=== PATIENT | female | born 1965 | race Hispanic/Latino ===

== ENCOUNTER 2023-06-17 11:01 | Emergency (ER) | payer BC, OTHER ==
--- OUTSIDE RECORDS SUMMARY | 2023-06-17 11:44 | XMS REPORT | Continuity of Care Document ---
:1965 Author Organization [facility] t Address [address] [place] [id number] Care Team Providers Name Role Phone Unavailable Unavailable Unavailable Problems This patient has no known problems. Allergies, Adverse Reactions, Alerts This patient has no known allergies or adverse reactions. Medications This patient has no known medications. Procedures This patient has no known procedures. Results This patient has no known results.
[2023-06-17 11:53] LABS: Absolute Lymphocytes (CBC) 1.6 K/uL (0.7-4.9); Hematocrit 38.9 % (36.0-45.0); Lymphocytes % 21.5 % (15.3-44.8); MCV 86.7 fL (80-100); MPV 8.7 fL (7.6-11.3); RBC Red Blood Cell Count 4.49 M/uL (3.86-4.86)
[2023-06-17] MEDS ORDERED: MAGNES/ALUMIN/SIMET 30ML UCUP ONE (11:53)
[2023-06-17] MEDS ORDERED: ASPIRIN 81 MG CHEWABLE TABLET ONE (11:53)
[2023-06-17] MEDS ORDERED: ONDANSETRON 4 MG/2 ML VIAL ONE (11:54)
[2023-06-17] MEDS ORDERED: FAMOTIDINE 20 MG/2 ML VIAL IV ONE (11:54)
[2023-06-17 12:12] LABS: ALT/SGPT 24 U/L (13-56); AST/SGOT 12 U/L (15-37); Albumin 3.8 g/dL (3.4-5.0); Alkaline Phosphatase 123 U/L (45-117); BUN Blood Urea Nitrogen 10 mg/dL (7-18); Bicarbonate 27 mEq/L (21-32); Bilirubin Total 0.3 mg/dL (0.2-1.0); Glomerular Filtration Rate 102 ml/min (=/>90); Glucose Level 99 mg/dL (74-106); NT PRO-BNP 81 pg/mL (<125); Potassium 3.6 mEq/L (3.5-5.1); Protein, Total 7.8 g/dL (6.4-8.2); Sodium Level 139 mEq/L (136-145); Troponin High Sensitivity 3.7 pg/mL (<58.9)
[2023-06-17 12:15] LABS: Bilirubin Direct < 0.1 mg/dL (0-0.2); Bilirubin Indirect, Calculated ND mg/dL (0.2-0.8)
--- NOTE | 2023-06-17 12:16 | RAD REPORT ---
EXAM DESCRIPTION: [place] Single View06/17/2023 11:54 am CLINICAL HISTORY: Chest pain COMPARISON: none FINDINGS: The lungs appear clear of acute infiltrate. The heart is normal size IMPRESSION: No acute abnormalities displayed
--- NOTE | 2023-06-17 12:36 | EDPHYS ---
Physician Documentation [facility] [place], [place] Name: Deborah Velasquez Age: 57 yrs Sex: Female : 1965 Arrival Date: 06/17/2023 Time: 11:01 Bed 18 Private MD: ED Physician Taz Razo HPI: 06/17 11:10 Patient is a 57-year-old obese female here with chest pain that started at 5 this jr11 morning. Patient states the pain is dull like goes into her back, associated with 1 episode of emesis. Denies any diaphoresis does not cross the diaphragm patient otherwise has had her gallbladder out. Denies shortness of breath. Denies exertional component to this chest pain. Not described as a tearing pain. No syncope.. Historical: - Allergies: : No Known Allergies; iw - Home Meds: :07 None [Active]; iw - PMHx: 11:07 None; iw - PSHx: 11:07 section; iw - Immunization history:: Adult Immunizations up to date. - Social history:: Smoking status: Patient denies any tobacco usage or history of. ROS: 11:10 All other systems are negative. jr11 Exam: 11:10 Constitutional: This is a well developed, well nourished patient who is awake, alert, jr11 and in no acute distress. Head/Face: Normocephalic, atraumatic. Eyes: Extra-ocular motions intact. Lids and lashes normal. Conjunctiva and sclera are non-icteric and not injected. Cornea within normal limits. Periorbital areas with no swelling, redness, or edema. ENT: Nares patent. No nasal discharge, no septal abnormalities noted. Oropharynx with no redness, swelling, or masses, exudates, or evidence of obstruction, uvula midline. Mucous membranes moist. Chest/axilla: Normal chest wall appearance and motion. Nontender with no deformity. No lesions are appreciated. Cardiovascular: Regular rate and rhythm with a normal S1 and S2. No gallops, murmurs, or rubs. Normal PMI, no JVD. No pulse deficits. Respiratory: Lungs have equal breath sounds bilaterally, clear to auscultation and percussion. No rales, rhonchi or wheezes noted. No increased work of breathing, no retractions or nasal flaring. Abdomen/GI: TTP KASH, no peritoneal signs Back: No spinal tenderness. No costovertebral tenderness. Full range of motion. MS/ Extremity: Pulses equal, no cyanosis. Neurovascular intact. Full, normal range of motion. Neuro: Awake and alert, GCS 15, oriented to person, place, time, and situation. No gross motor or sensory deficits. Vital Signs: 11:04 Pulse 91; Resp 16; Pulse Ox 99% ; Pain 5/10; iw 11:07 Weight 83.46 kg; Height 4 ft. 11 in. ; iw 11:15 BP 141 / 82; Pulse 76; Resp 18; Pulse Ox 98% on R/A; eh3 12:00 BP 116 / 86; Pulse 75; Resp 20; Pulse Ox 98% on R/A; eh3 11:07 Body Mass Index 37.16 (83.46 kg, 149.86 cm) iw 11:04 Pain Scale: Adult iw MDM: 11:09 Patient medically screened. jr11 11:10 Differential diagnosis: coronary artery disease congestive heart failure jr11 costochondritis, esophagitis, gastritis, gastroesophageal reflux disease (GERD), pneumonia, Patient is a 57-year-old obese female that is her only risk factor here with chest pain. Only atypical feature is she had a bout of emesis, other than that denies exertional component rest of the history negative to rule in for ACS. Patient with some mid epigastric discomfort, will give a GI cocktail. If troponins negative heart score will be less than 3. Patient without any shortness of breath no history of blood clots no leg swelling, doubt PE. Pain is not described as tearing, no concern for dissection or AAA. 11:21 ED course: EKG interpreted by me shows normal sinus rhythm, normal axis, normal jr11 intervals, no acute ST changes. youth nutritional monitor interpreted by me shows normal sinus rhythm rate of 75.. 12:34 ED course: X-ray image interpreted by me shows no pneumonia. Patient with heart score jr11 less than 3, got immediate relief with GI cocktail, chest pain likely noncardiac chest pain with a heart score less than 3 able to get outpatient follow-up. Patient comfortable with plan of care and understands it is her responsibility to schedule an outpatient stress test ideally within to 72 hours. ER warnings given all results explained.. 06/17 11:10 Order name: Basic Metabolic Panel; Complete Time: 12:29 06/17 11:10 Order name: CBC with Diff; Complete Time: 12:06/17 11:10 Order name: LFT's; Complete Time: 12:06/17 11:10 Order name: NT PRO-BNP; Complete Time: 12:06/17 11:10 Order name: Troponin HS; Complete Time: 12:06/17 11:10 Order name: XRAY Chest (1 view); Complete Time: 12:06/17 11:10 Order name: EKG; Complete Time: 11:06/17 11:10 Order name: Cardiac monitoring; Complete Time: :06/17 11:10 Order name: EKG - Nurse/Tech; Complete Time: :06/17 11:10 Order name: IV Saline Lock; Complete Time: 11:47 06/17 11:10 Order name: Labs collected and sent; Complete Time: 11:06/17 11:10 Order name: O2 Per Protocol; Complete Time: :06/17 11:10 Order name: O2 Sat Monitoring; Complete Time: 11: Administered Medications: 11:53 Drug: Aspirin PO Chewable Tablet 324 mg Route: PO; eh3 12:30 Follow up: Response: No adverse reaction eh3 11:53 Drug: Ondansetron IVP 4 mg Route: IVP; Site: left antecubital; eh3 12:30 Follow up: Response: No adverse reaction eh3 11:53 Drug: Famotidine IVP 20 mg Route: IVP; Site: left antecubital; eh3 12:30 Follow up: Response: No adverse reaction eh3 11:53 Drug: GI Cocktail without - (Maalox PO Suspension 30 ml, Lidocaine Mucous eh3 Membrane Liquid 2 % 15 ml) Route: PO; 12:30 Follow up: Response: No adverse reaction eh3 Disposition Summary: 06/17/23 12:35 Discharge Ordered Location: [facility] Condition: Stable [facility] Diagnosis - Chest pain, unspecified 11 Followup: [facility] - With: Tomer Salas MD - When: 1 - 2 days - Reason: Re-evaluation by your physician Discharge Instructions: - Discharge Summary Sheet jr11 - Nonspecific Chest Pain, Adult jr11 Forms: - Work release form iw - Medication Reconciliation Form jr11 - Thank You Letter jr11 - Antibiotic Education jr11 - Prescription Opioid Use jr11 - Patient Portal Instructions jr11 Prescriptions: - Pepcid 20 mg Oral Tablet - take 1 tablet by ORAL route every 12 hours for 10 days; 20 tablet; Refills: 0, jr11 Product Selection Permitted Signatures: Dispatcher [employer] Cheyanne Ghosh RN RN iw Taz Razo MD MD jr11 Cecille Kyle RN RN 3
--- NOTE | 2023-06-17 12:36 | ER ---
Nurse's Notes [facility] Name: Deborah Velasquez Age: 57 yrs Sex: Female : 1965 Arrival Date: 06/17/2023 Time: 11:01 Bed 18 Private MD: Diagnosis: Chest pain, unspecified Presentation: 06/17 11:04 Chief complaint: Patient states: midsternal chest pain since 5 am, intermittent, took iw some Tums , vomited once. Coronavirus screen: At this time, the client does not indicate any symptoms associated with coronavirus-19. Ebola Screen: Patient negative for fever greater than or equal to 101.5 degrees Fahrenheit, and additional compatible Ebola Virus Disease symptoms Patient denies exposure to infectious person. Patient denies travel to an Ebola-affected area in the 21 days before illness onset. No symptoms or risks identified at this time. Initial Sepsis Screen: Does the patient meet any 2 criteria? Yes No. Patient's initial sepsis screen is negative. Does the patient have a suspected source of infection? No. Patient's initial sepsis screen is negative. Risk Assessment: Do you want to hurt yourself or someone else? Patient reports no desire to harm self or others. Onset of symptoms was June 17, 2023. 11:04 Method Of Arrival: Ambulatory iw 11:04 Acuity: NIECY 3 iw Historical: - Allergies: 11:07 No Known Allergies; iw - Home Meds: 11:07 None [Active]; iw - PMHx: 11:07 None; iw - PSHx: 11:07 section; iw - Immunization history:: Adult Immunizations up to date. - Social history:: Smoking status: Patient denies any tobacco usage or history of. Screenin:15 [facility] ED Fall Risk Assessment (Adult) Score/Fall Risk Level 0 - 2 = Low Risk. Abuse eh3 screen: Denies threats or abuse. Denies injuries from another. Nutritional screening: No deficits noted. Tuberculosis screening: No symptoms or risk factors identified. Assessment: 11:15 General: Appears in no apparent distress. uncomfortable, Behavior is calm, cooperative, eh3 appropriate for age. Pain: Complains of pain in chest and abdomen Pain does not radiate. Pain began suddenly, 2 hours ago. Neuro: Level of Consciousness is awake, alert, obeys commands, Oriented to person, place, time, situation. Cardiovascular: Capillary refill < 3 seconds Patient's skin is warm and dry. Respiratory: Airway is patent Respiratory effort is even, unlabored, Respiratory pattern is regular, symmetrical. GI: Abdomen is round non-distended, Reports vomiting. Derm: Skin is healthy with good turgor. Musculoskeletal: Circulation, motion, and sensation intact. 12:00 Reassessment: Patient appears in no apparent distress at this time. Patient and/or eh3 family updated on plan of care and expected duration. Pain level reassessed. Patient is alert, oriented x 3, equal unlabored respirations, skin warm/dry/pink. Vital Signs: 11:04 Pulse 91; Resp 16; Pulse Ox 99% ; Pain 5/10; iw 11:07 Weight 83.46 kg; Height 4 ft. 11 in. ; iw 11:15 BP 141 / 82; Pulse 76; Resp 18; Pulse Ox 98% on R/A; eh3 12:00 BP 116 / 86; Pulse 75; Resp 20; Pulse Ox 98% on R/A; eh3 11:07 Body Mass Index 37.16 (83.46 kg, 149.86 cm) iw 11:04 Pain Scale: Adult iw ED Course: 11:02 Patient arrived in ED. am2 11:04 Taz Razo MD is Attending Physician. jr11 11:06 Triage completed. iw 11:07 Arm band placed on. iw 11:15 Patient has correct armband on for positive identification. Bed in low position. Call eh3 light in reach. Side rails up X2. Client placed on continuous cardiac and pulse oximetry monitoring. NIBP monitoring applied. Door closed. Noise minimized. 11:15 Provided Education on: Use of call choi. eh3 11:15 Inserted saline lock: 20 gauge in left antecubital area, using aseptic technique. Blood eh3 collected. Patient maintains SpO2 saturation greater than 95% on room air. 11:29 EKG done, by ED staff, reviewed by Taz Razo MD. em1 11:31 Cecille Kyle, RN is Primary Nurse. eh3 11:56 XRAY Chest (1 view) In Process Unspecified. EDMS 12:34 Tomer Salas MD is Referral Physician. jr11 13:00 No provider procedures requiring assistance completed. IV discontinued, intact, eh3 bleeding controlled, No redness/swelling at site. Pressure dressing applied. Administered Medications: 11:53 Drug: Aspirin PO Chewable Tablet 324 mg Route: PO; eh3 12:30 Follow up: Response: No adverse reaction eh3 11:53 Drug: Ondansetron IVP 4 mg Route: IVP; Site: left antecubital; eh3 12:30 Follow up: Response: No adverse reaction eh3 11:53 Drug: Famotidine IVP 20 mg Route: IVP; Site: left antecubital; eh3 12:30 Follow up: Response: No adverse reaction eh3 11:53 Drug: GI Cocktail without - (Maalox PO Suspension 30 ml, Lidocaine Mucous eh3 Membrane Liquid 2 % 15 ml) Route: PO; 12:30 Follow up: Response: No adverse reaction eh3 Medication: 13:00 VIS not applicable for this client. eh3 Outcome: 12:35 Discharge ordered by . margaret 13:00 Discharged to home ambulatory, with significant other. 3 13:00 Condition: stable 13:00 Discharge instructions given to patient, Instructed on discharge instructions, follow up and referral plans. medication usage, Demonstrated understanding of instructions, follow-up care, medications, Prescriptions given X 1. 13:04 Patient left the ED. iw Signatures: Dispatcher [employer] EDCheyanne Pineda, RN Bull Valle1 Marcela Agustin Jose, MD MD jr11 Cecille Kyle RN RN eh3
[2023-06-17 13:10] VITALS: O2SAT 98
[2023-06-17 13:12] VITALS: BP 116/86
--- NOTE | 2023-06-17 18:49 | EKG ---
Test Date: 2023-06-17 Test Time: 11:17:57 House Nurse: REMY MEASUREMENT RESULTS: Intervals: Rate: 82 NC: 154 QRSD: 72 QT: 384 QTc: 448 [place]: P: 48 NC: 154 QRS: 12 T: 49 INTERPRETIVE STATEMENTS: Normal sinus rhythm Cannot rule out Anterior infarct, age undetermined Abnormal ECG Compared to ECG 01/11/2014 22:38:38 Myocardial infarct finding now present Electronically Signed On 06-17-23 18:47:43 CDT by Tomer Salas
== END 2023-06-17 13:04 | disposition home or self-care (01) ==
LOC: ER 11:01
DX: R07.9 Chest pain, unspecified (principal)
CPT/HCPCS: 93005; 85025; 80048; 36415; 80076; 84484; 83880; 71045; 96375; 96374; 99285; J2405